=== PATIENT | female | born 1960 | race Caucasian/White ===

== ENCOUNTER 2016-11-01 12:15 | Emergency (ER) | payer MEDICARE, OTHER ==
[~2016-11-01] VITALS: Wt 78.0 kg
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
[2016-11-01] MEDS ORDERED: NPH10OT RIGHT EAR (13:29)
[2016-11-01] MEDS ORDERED: OFLO5DRO7 RIGHT EAR (13:31)
== END 2016-11-01 14:04 | disposition home or self-care (01) ==
LOC: FTE 12:15
DX: H60.331 Swimmer's ear, right ear (principal)
CPT/HCPCS: 99283

== ENCOUNTER 2017-01-02 14:13 | Emergency (ER) | payer MEDICARE, OTHER ==
[~2017-01-02] VITALS: Ht 160 cm; Wt 80.0 kg
[~2017-01-02 14:13] MED LIST: OFLO5DRO7 RIGHT EAR
[2017-01-02 14:17] VITALS: Ht 160 cm; Wt 80.0 kg
[2017-01-02] MEDS ORDERED: KETOROLAC 30 MG INJ IM STA (14:39)
[2017-01-02] MEDS ORDERED: IBUP400T22 PO (14:41)
--- NOTE | 2017-01-02 14:46 | ERD ---
ER Documentation Chief Complaint Date/Time DATE: 01/02/17 TIME: 14:41 Chief Complaint NON TRAUMATIC LEFT SHOULDER PAIN ON AND OFF X 3 DAYS HPI Patient is a 56-year-old female with past medical history of diabetes, hyperlipidemia, depression, who presents to the emergency department with left shoulder pain 3 days. Patient states the pain is intermittent in nature. Patient states she is unable to lift her left shoulder secondary to pain. Patient has to lift her left arm using her right arm. The pain does not radiate down her left arm. Pain is localized to her left shoulder. She denies taking any pain medication. Patient denies any falls or trauma. Patient denies any fevers, chills, nausea, vomiting, chest pain, shortness of breath, diaphoresis, loss of consciousness. ROS All systems reviewed and are negative except as per history of present illness. Medications Home Meds Active Scripts Ibuprofen* (Motrin*) 400 Mg Tab, 400 MG PO Q6, #30 TAB Prov:JAMES ROJAS PA-C 01/02/17 Ofloxacin Otic (Ofloxacin Otic) 5 Ml Drops, 5 DROP RIGHT EAR BID for 7 Days, #1 BOTTLE Prov:TERESA JOHN PA-C 11/01/16 PMhx/Soc Hx Cardiac Disorders: Yes (Diabetes, hyperlipidemia) Hx Psychiatric Problems: Yes (Depression) Hx Alcohol Use: No Hx Substance Use: No Hx Tobacco Use: No FmHx Family History: No diabetes Physical Exam Vitals Vital Signs Date Time Temp Pulse Resp B/P Pulse Ox O2 Delivery O2 Flow Rate FiO2 01/02/17 14:17 98.4 95 20 131/78 99 Physical Exam GENERAL: Well-developed, well-nourished female. Appears in no acute distress. Speaking in full sentences HEAD: Normocephalic, atraumatic. EYES: Pupils are equally reactive bilaterally. EOMs grossly intact. No conjunctival erythema. ENT: Moist mucous membranes. No uvula deviation. No kissing tonsils. NECK: Supple. No meningismus. Normal range of motion of the neck. LUNG: Clear to auscultation bilaterally. No rhonchi, wheezing, rales or coarse breath sounds. HEART: Regular rate and rhythm. No murmurs, rubs or gallops. EXTREMITIES: Equal pulses bilaterally. No peripheral clubbing, cyanosis or edema. No unilateral leg swelling. NEUROLOGIC: Alert and oriented. Moving all four extremities without any difficulty. Normal speech. Steady gait. SKIN: Normal color. Warm and dry. No rashes or lesions. Left shoulder: No obvious deformity, erythema, ecchymosis or swelling. Skin intact. Decreased active range of motion of the left shoulder secondary to pain. Normal passive range of motion of left shoulder. Tender to palpation of the anterior shoulder. Nontender palpation of the clavicle, distal humerus, elbow, forearm, wrist.. Sensation intact to light touch. Neurovascularly intact. (Able to give thumbs up, make an ok sign, cross digits 2 and 3, thumb to pinky opposition. 2+ RP.) No snuffbox tenderness. Results 24 hrs Current Medications Medications (Trade) Dose Ordered Sig/Kathia Route PRN Reason Start Time Stop Time Status Last Admin Dose Admin Ketorolac Tromethamine (Toradol) 30 mg ONCE STAT IM 01/02/17 14:39 01/02/17 14:40 DC 01/02/17 14:51 Procedures/MDM ED COURSE: The patient was stable throughout ED course. I kept the patient and/or family informed of laboratory and diagnostic imaging results throughout the ED course. DIAGNOSTIC IMAGING: Read by radiologist. Patient Name Melinda Christopher Study Date 01/02/2017 3:32 PM Patient 1960 Accession No. [id number] Referring Physician James Rojas Pa-c CLINICAL INDICATION: shoulder pain TECHNIQUE: AP, Internal and external rotation views of the left shoulder were performed. COMPARISON: None. FINDINGS: There is normal osseous mineralization and alignment. No acute fracture or osseous lesion is identified. There are normal joints without evidence of arthritis or dislocation. There are calcifications in the soft tissues adjacent to the superolateral humeral head consistent with calcific tendinosis. IMPRESSION: Faint calcifications in the soft tissues adjacent to the superolateral humeral head consistent with calcific tendinosis. Otherwise, no significant abnormalities are identified. RPTAT:AAALICIA Signed By: Chicho Laird M.d MEDICATIONS GIVEN: Toradol IM Patient tolerated medication well with no adverse reactions. Patient reported improvement in pain. MEDICAL DECISION MAKING: This is a 56-year-old female with past medical history of diabetes, hyperlipidemia, depression who presents to the emergency department with left shoulder pain 3 days. Denies any recent falls or trauma. Vital signs were reviewed. Patient was afebrile. Xray imaging showed Faint calcifications in the soft tissues adjacent to the superolateral humeral head consistent with calcific tendinosis. Otherwise, no significant abnormalities are identified. Given these findings, the patient's presentation is most consistent with calcific tendonitis. I have a much lower clinical concern for shoulder dislocation, clavicle fracture, humerus fracture, bursitis, osteomyelitis, rheumatoid arthritis, septic joint, or compartment syndrome. Low suspicion for ACS, pneumothorax or pneumonia. Unable to rule out any ligament or tendon injuries at this time. PRESCRIPTIONS: Ibuprofen DISCHARGE: At this time, patient is stable for discharge and outpatient management. RICE therapy and ROM exercises were advised to avoid stiffness. I have instructed the patient to follow-up with his/her primary care physician in 1-2 days. I have discussed with the patient the possibility of needing to see an manpower development specialist manager for further workup and imaging if the pain persists. I have instructed the patient to promptly return to the ER for any new or worsening symptoms including increased pain, swelling, redness, warmth or fever. The patient and/or family expressed understanding of and agreement with this plan. All questions were answered. Home care instructions were provided. Departure Diagnosis: Primary Impression: Shoulder pain, left Chronicity: acute Qualified Code: M25.512 - Acute pain of left shoulder Additional Impression: Calcific tendonitis Condition: Stable Patient Instructions: Shoulder Pain (Uncertain Cause) Referrals: [facility] YOU HAVE RECEIVED A MEDICAL SCREENING EXAM AND THE RESULTS INDICATE THAT YOU DO NOT HAVE A CONDITION THAT REQUIRES URGENT TREATMENT IN THE EMERGENCY DEPARTMENT. FURTHER EVALUATION AND TREATMENT OF YOUR CONDITION CAN WAIT UNTIL YOU ARE SEEN IN YOUR DOCTORS OFFICE WITHIN THE NEXT 1-2 DAYS. IT IS YOUR RESPONSIBILITY TO MAKE AN APPOINTMENT FOR FOLOW-UP CARE. IF YOU HAVE A PRIMARY DOCTOR --you should call your primary doctor and schedule an appointment IF YOU DO NOT HAVE A PRIMARY DOCTOR YOU CAN CALL OUR PHYSICIAN REFERRAL HOTLINE AT IF YOU CAN NOT AFFORD TO SEE A PHYSICIAN YOU CAN CHOSE FROM THE FOLLOWING [facility] [address] [facility] [address] [facility] [address] [facility] [address] [facility] [address] [facility]. [facility] [address] [facility]. [facility] YOU HAVE RECEIVED A MEDICAL SCREENING EXAM AND THE RESULTS INDICATE THAT YOU DO NOT HAVE A CONDITION THAT REQUIRES URGENT TREATMENT IN THE EMERGENCY DEPARTMENT. FURTHER EVALUATION AND TREATMENT OF YOUR CONDITION CAN WAIT UNTIL YOU ARE SEEN IN YOUR DOCTORS OFFICE WITHIN THE NEXT 1-2 DAYS. IT IS YOUR RESPONSIBILITY TO MAKE AN APPOINTMENT FOR FOLOW-UP CARE. IF YOU HAVE A PRIMARY DOCTOR --you should call your primary doctor and schedule and appointment IF YOU DO NOT HAVE A PRIMARY DOCTOR YOU CAN CALL OUR PHYSICIAN REFERRAL HOTLINE AT . IF YOU CAN NOT AFFORD TO SEE A PHYSICIAN YOU CAN CHOSE FROM THE FOLLOWING [facility] INSTITUTIONS: [facility] [address] [place] [address] [facility] [address] [place] [address] [facility] [address] [place] [address] [facility] Hours: Mon-Fri 9:00 AM - 5:00 PM Additional Instructions: Call your primary care doctor TOMORROW for an appointment during the next 1-2 days.See the doctor sooner or return here if your condition worsens before your appointment time. Unable to rule out any ligament or tendon injuries at this time. Patient advised to follow-up with an manpower development specialist manager and/or obtain MRI imaging on an outpatient basis if her pain persists. JAMES ROJAS PA-C Jan 02, 2017 14:46
--- NOTE | 2017-01-03 18:47 | RADRPT ---
PROCEDURE: XR left shoulder. CLINICAL INDICATION: shoulder pain TECHNIQUE: AP, Internal and external rotation views of the left shoulder were performed. COMPARISON: None. FINDINGS: There is normal osseous mineralization and alignment. No acute fracture or osseous lesion is identified. There are normal joints without evidence of arthritis or dislocation. There are calcifications in the soft tissues adjacent to the superolateral humeral head consistent w ith calcific tendinosis. IMPRESSION: Faint calcifications in the soft tissues adjacent to the superolateral humeral head consistent with calcific tendinosis. Otherwise, no significant abnormalities are identified. RPTAT:AAJJ Physician Darlyn Date Time Electronically viewed and signed by Physician Darlyn on 01/02/2017 16:25 FRANCINE/
== END 2017-01-02 18:03 | disposition home or self-care (01) ==
LOC: FTE 14:13
DX: M25.512 Pain in left shoulder (principal); M75.32 Calcific tendinitis of left shoulder; E11.9 Type 2 diabetes mellitus without complications
CPT/HCPCS: 73030; J1885; 96372

== ENCOUNTER 2019-03-29 17:42 | Emergency (ER) | payer MEDICARE, OTHER ==
[~2019-03-29] VITALS: Ht 170.2 cm; Wt 80.9 kg
[~2019-03-29 17:42] MED LIST changes: +IBUP-1561 PO
[2019-03-29 17:47] VITALS: BP 174/85; PULSE 81; RESP 18; Ht 170.2 cm; Wt 80.9 kg
[2019-03-29] MEDS ORDERED: IBUP-1542 PO (18:49)
[2019-03-29] MEDS ORDERED: CYCL10TA7 PO (18:49)
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
== END 2019-03-29 19:20 | disposition home or self-care (01) ==
LOC: FTE 17:42
DX: S09.90XA Unspecified injury of head, initial encounter (principal); E11.9 Type 2 diabetes mellitus without complications; W22.8XXA Striking against or struck by other objects, initial encounter; Y92.9 Unspecified place or not applicable
CPT/HCPCS: 99283